=== PATIENT | male | born 1975 | race Caucasian/White ===

== ENCOUNTER → 2019-06-29 | Outpatient (CLI) | payer BC ==
[2016-12-28 18:15] VITALS: BP 147/98
[~2019-06-29] MED LIST: HYDR-1179 PO; LEVO500T59 PO
--- NOTE | 2019-06-29 15:05 | RAD ---
Examination: CT ABDOMEN PELVIS WO CONTRAST History: Right flank pain, kidney stones Comparison/Correlation: None Findings: Axial images of the abdomen and pelvis were obtained without contrast. Sagittal and coronal reformatted. Linear atelectasis at the right middle lobe basilar aspect is evident. Right costophrenic sulcus atelectasis is minimal. Liver, spleen, pancreas, and adrenal glands are normal. Gallbladder fossa is unremarkable. There are no radiopaque right collecting system calculi or collecting system obstruction. No radiopaque left collecting system calculi. At the left renal superior pole, there is a mildly hyperdense lesion measuring up to 1.2 cm diameter. It is overall small for characterization and may represent a hemorrhagic or proteinaceous cyst. Left renal inferior pole scarring noted. Appendix is normal. No bowel obstruction. No extraluminal gas. No ascites or pelvic free fluid. Right femoral intramedullary demetris is partially seen. Associated screw is evident extending from the greater trochanter to lesser trochanter. Impression: No radiopaque collecting system calculi. No collecting system obstruction. Appendix is normal. Left renal hypodense lesion likely representing a hemorrhagic or proteinaceous cyst. Interval follow-up ultrasound exam 6 months is recommended to assess stability. PQRS Compliance Statement: One or more of the following individualized dose reduction techniques were utilized for this examination: 1. Automated exposure control 2. Adjustment of the mA and/or kV according to patient size 3. Use of iterative reconstruction technique Electronically signed by: Angel Geller MD (06/29/2019 3:02 PM) [facility]
== END | disposition home or self-care (01) ==
LOC: PMG 14:11
PROVIDERS: ATTEND Physician Assistant Medical
DX: R10.11 Right upper quadrant pain (principal)
CPT/HCPCS: 74176

== ENCOUNTER → 2019-06-29 | Outpatient (CLI) | payer BC ==
[2016-12-28 18:15] VITALS: BP 147/98
[2019-06-29 14:34] LABS: BASO % 0 % (0-3); EOS # 0.3 x10^3/uL (0.0-0.7); EOS % 4 % (0-3); HEMATOCRIT 49.1 % (39.0-53.0); HEMOGLOBIN 16.4 g/dL (13.0-17.5); LYMPH # 2.4 x10^3/uL (1.0-4.8); LYMPH % 27 % (24-48); MEAN CORPUSCULAR HEMOGLOBIN 32 pg (25-35); MEAN CORPUSCULAR HGB CONC 33 g/dL (31-37); MEAN CORPUSCULAR VOLUME 96 fL (79-100); MONO # 1.3 x10^3/uL (0.0-1.1); MONO % 14 % (0-9); NEUT # 5.1 x10^3uL (1.8-7.7); NEUT % 56 % (31-73); PLATELET COUNT 238 x10^3/uL (140-400); RED BLOOD COUNT 5.13 x10^6/uL (4.30-5.70); RED CELL DISTRIBUTION WIDTH 14.6 % (11.5-14.5); WHITE BLOOD COUNT 9.2 x10^3/uL (4.0-11.0)
[2019-06-29 14:37] LABS: ALBUMIN 3.6 g/dL (3.4-5.0); ALBUMIN/GLOBULIN RATIO 0.9 (1.0-1.7); CALCIUM 9.5 mg/dL (8.5-10.1); CREATININE 1.1 mg/dL (0.7-1.3); GFR 72.7; TOTAL BILIRUBIN 0.7 mg/dL (0.2-1.0); TOTAL PROTEIN 7.6 g/dL (6.4-8.2)
[2019-06-29 15:38] LABS: SEDIMENTATION RATE 9 (0-15)
== END | disposition home or self-care (01) ==
LOC: PMG 14:00
PROVIDERS: ATTEND Physician Assistant Medical
DX: R50.9 Fever, unspecified (principal)
CPT/HCPCS: 36415; 80053; 85025; 85651